=== PATIENT | male | born 1940 | race Caucasian/White ===

== ENCOUNTER → 2016-09-05 | Day surgery (SDC) | payer MEDICARE, BC ==
[~2016-09-05] MED LIST: BUPIVACAINE HCL PF 0.75% 30 ML VIAL ONE; EPINEPHrine HCL (1:1000) 30 MG/30 ML VIAL ONE; LACTATED RINGER'S 1000 ML INJ 1,000 ML ONE; LIDOCAINE 1.5%/EPINEPHrine 1:200,000 PF SOLN 30 ML AMP ONE; MIDAZOLAM HCL 5 MG/ML VIAL (1 ML) ONE; ONDANSETRON HCL 4 MG/2 ML VIAL IV PUSH ONE; PROPOFOL 100 MG/10 ML INJ IV ONE; ceFAZolin 2 GM PREMIX 50 ML ONE
--- NOTE | 2016-09-08 10:19 | MP ---
cc: YARIEL GILLIAM DATE OF SURGERY: 09/05/2016 PREOPERATIVE DIAGNOSIS Right shoulder rotator cuff tear, right shoulder impingement syndrome, right shoulder labral tear, right shoulder calcific tendinosis. POSTOPERATIVE DIAGNOSES Right shoulder rotator cuff tear, right shoulder impingement syndrome, right shoulder labral tear, right shoulder calcific tendinosis. PROCEDURE Right shoulder arthroscopic rotator cuff repair, right shoulder arthroscopic subacromial decompression, right shoulder arthroscopic extensive debridement of labrum and calcific tendinosis. SURGEON Dr. Yariel Gilliam. FUNERAL COUNSELOR AL Carrington ANESTHESIA General with an anterior scalene block. ESTIMATED BLOOD LOSS Less than 10 ccs. COMPLICATIONS None. IMPLANTS USED Arthrex. JUSTIFICATION The patient is a 76-year-old male with history of persistent symptoms of progressive right shoulder pain and weakness. He has failed extensive conservative treatment. Clinical exam as well as MRI confirmed the above-named findings. The patient was counseled as to the risks, benefits and alternatives to the above-named proposed surgical procedure. He did wish to proceed with surgery. PROCEDURE IN DETAIL A written consent was obtained. The patient was identified by name, taken to the operating room and placed supine on the operating table. General anesthesia was administered to the patient as well as 2 grams of IV Ancef. He did receive preoperative interscalene block. The patient was carefully turned to the left lateral decubitus position. A lateral arm was placed. All bony prominences and pressure points were well padded. The patient's neck was carefully monitored and kept neutral. An arthroscopic arm meyer was gently applied to the right shoulder with 10 pounds of traction placed. The right shoulder was prepped and draped using isopropyl alcohol, Hibiclens solution and DuraPrep solution. After time-out was performed a standard posterior and anterior glenohumeral arthroscopic portal was established. The glenohumeral joint revealed evidence of labral tearing along the anterior, superior and posterior portions. An arthroscopic shaver was introduced in the anterior portal and extensive debridement of the labrum was performed. The debridement included the 3 o'clock position up to the 12 o'clock position and back down to the 9 o'clock position. Biceps origin was intact. Attention was turned to the subacromial space. There was evidence of significant impingement with bursitis. An arthroscopic shaver was introduced from lateral portal. A subacromial decompression was performed. The shaver was used to perform extensive bursectomy. Arthroscopic bur was used to perform an acromioplasty and the cautery device was used to release coracoacromial ligament. There is evidence of tearing of the rotator cuff tendon at the supraspinatus origin with evidence of calcific tendinosis. An arthroscopic shaver as well as a spinal needle was used to perform a debridement of the calcific tendinosis. An Arthrex scorpion device was used to shuttle #2 fiber tape suture in a horizontal mattress pattern through the torn tendon. A #2 fiber link suture was placed along the anterior portion of the torn tendon as well. The sutures were placed in the eyelet with an Arthrex 4.75 mm bio swivel lock anchor. The anchor was inserted in the greater tuberosity after appropriate tensioning of sutures. The rotator cuff tendon repair was probed and noted to have good stability and fixation. At the conclusion of the procedure the arthroscopic portals were closed with 3-0 Prolene suture. Sterile dressing was applied. The patient was placed in sling and swath immobilizer. He tolerated the procedure well with no intraoperative complications noted. Ayden Lopez, physician architectural administrative assistant certified was present during the entire procedure to include patient positioning and the procedure itself. The medical necessity of physician architectural administrative assistant was indicated in this case due to the complexity of the procedure. He assisted with appropriate manipulation of the arm and also manipulation of the camera. He assisted with both shuttling of sutures and also implantation of suture anchor for purposes of rotator cuff tendon repair. MD AI Oneal/PAMELLA /12:28 PM /10:00 AM
== END | disposition home or self-care (01) ==
LOC: ESDC 09:06
PROVIDERS: ATTEND Orthopaedic Surgery Sports Medicine
DX: M75.101 Unspecified rotator cuff tear or rupture of right shoulder, not specified as traumatic (principal); M75.41 Impingement syndrome of right shoulder; S43.401A Unspecified sprain of right shoulder joint, initial encounter; M75.31 Calcific tendinitis of right shoulder; E11.9 Type 2 diabetes mellitus without complications
CPT/HCPCS: 01630; 01991; 29823; 29826; 29827; 64417; 82948; C1713; J0171; J0690; J2250; J2405; J7120